=== PATIENT | female | born 1990 | race Caucasian/White ===

== ENCOUNTER 2019-04-02 15:58 | Emergency (ER) | payer BC, OTHER ==
[2019-04-02 17:54] VITALS: BP 120/70
[2019-04-02 18:13] LABS: Influenza A Molecular Negative (Negative); Influenza B Molecular Negative (Negative)
--- NOTE | 2019-04-02 18:19 | UC ---
FLU HPI - HPI Summary HPI Summary: SERRA, nasal congestion and muscle aches x2 days. exposure to flu at work. nothing makes it better/worse. able to drink fluids normally and urinate normally. - History of Current Complaint Chief Complaint: UCRespiratory Stated Complaint: FLU SYMPTOMS Time Seen by Provider: 04/02/19 17:55 Hx Obtained From: Patient Hx Last Menstrual Period: 03/23/19 Pain Intensity: 5 Pain Scale Used: 0-10 Numeric - Allergy/Home Medications Allergies/Adverse Reactions: Allergies Allergy/AdvReac Type Severity Reaction Status Date / Time azithromycin Allergy Vomiting Verified 04/02/19 17:48 hydrocodone Allergy Vomiting Verified 04/02/19 17:48 Home Medications: Home Medications NK [No Home Medications Reported] 04/02/19 [History Confirmed 04/02/19] PMH/Surg Hx/FS Hx/Imm Hx - Additional Past Medical History Additional PMH: no chronic illness but being w/u for thyroid issues. Previously Healthy: Yes - Surgical History Surgical History: Yes Surgery Procedure, Year, and Place: T&A, 2002, [facility]. polyps removed from vocal cords. RIGHT HIP ligament restablization - Family History Known Family History: Negative: Hypertension, Diabetes, Respiratory Disease - Social History Alcohol Use: Weekly Substance Use Type: Marijuana Substance Use Comment - Amount & Last Used: PT STATES SHE NO LONGER USES Smoking Status (MU): Current Every Day Smoker Type: eCigarettes Amount Used/How Often: "a pod every few days"-ecig- When Did the Patient Quit Smoking/Using Tobacco: 3 MOS Review of Systems All Other Systems Reviewed And Are Negative: Yes Constitutional: Positive: Chills, Fatigue. Negative: Fever Skin: Negative: Rash ENT: Positive: Sinus Congestion. Negative: Sore Throat, Ear Ache, Nasal Discharge, Sinus Pain/Tenderness Respiratory: Negative: Shortness Of Breath, Cough Motor: Negative: Weakness Musculoskeletal: Positive: Myalgia Neurological: Positive: Headache Physical Exam Triage Information Reviewed: Yes Appearance: Well-Appearing Vital Signs: Initial Vital Signs Temp 99.8 F 04/02/19 17:48 Pulse 115 04/02/19 17:48 Resp 16 04/02/19 17:48 BP 120/70 04/02/19 17:48 Pulse Ox 100 04/02/19 17:48 Vital Signs Reviewed: Yes Eyes: Positive: Conjunctiva Clear ENT: Positive: Pharynx normal, TMs normal, Uvula midline Neck: Positive: Supple, Nontender, No Lymphadenopathy Respiratory Exam: Normal Cardiovascular Exam: Normal Neurological: Positive: Alert Skin: Negative: Rashes Flu Course/Dx - Course Course Of Treatment: Acute body aches, nausea and serra w/ rapid flu neg. viral source and we disc ways to manage symptoms and when to return. vitals good and pulse returned to normal limits. - Differential Dx/Diagnosis Differential Diagnosis/HQI/PQRI: Influenza, Other Provider Diagnosis: Influenza-like illness Discharge ED - Sign-Out/Discharge Documenting (check all that apply): Patient Departure All imaging exams completed and their final reports reviewed: No Studies - Discharge Plan Condition: Good Disposition: HOME Patient Education Materials: Viral Syndrome (ED) Forms: *Work Release Referrals: No Primary Care Phys,NOPCP [Primary Care Provider] - Additional Instructions: if worsening please f/u with your primary care. - Billing Disposition and Condition Condition: GOOD Disposition: Home
== END 2019-04-02 18:40 | disposition home or self-care (01) ==
LOC: UCCORT 15:58
DX: R09.81 Nasal congestion (principal); M79.10 Myalgia, unspecified site; R53.83 Other fatigue; R51 Headache; F17.290 Nicotine dependence, other tobacco product, uncomplicated; Z88.0 Allergy status to penicillin; Z88.6 Allergy status to analgesic agent
CPT/HCPCS: 99211; G0463